=== PATIENT | female | born 1995 | race Asian ===

== ENCOUNTER 2024-02-17 20:45 | Emergency (ER) | payer MEDICAID ==
[~2024-02-17] VITALS: Ht 152.4 cm; Wt 46.3 kg
[2024-02-17 20:58] VITALS: BP_SYST 98; PULSE 61; RESP 20; TEMP 98; O2SAT 98
[2024-02-17 21:45] VITALS: BP_SYST 98; PULSE 61; RESP 20; TEMP 98; O2SAT 98
== END 2024-02-17 21:53 | disposition home or self-care (01) ==
LOC: SED 20:45
DX: S43.401A Unspecified sprain of right shoulder joint, initial encounter (principal); W22.8XXA Striking against or struck by other objects, initial encounter; Y93.89 Activity, other specified; Y92.89 Other specified places as the place of occurrence of the external cause; Y99.8 Other external cause status
CPT/HCPCS: 73030; 99283